=== PATIENT | female | born 1975 | race Caucasian/White ===

== ENCOUNTER → 2022-01-23 | Outpatient (CLI) | payer MEDICARE, OTHER ==
--- NOTE | 2022-01-24 06:08 | XR ---
EXAMINATION TYPE: XR ribs RT DATE OF EXAM: 01/23/2022 COMPARISON: NONE HISTORY: Right-sided rib pain after fall injury. TECHNIQUE: Frontal and oblique images of the right-sided ribs are obtained. FINDINGS: There is acute minimally displaced right-sided rib fracture the anterolateral fourth rib. R emainder ribs show no acute displaced fractures. Overlying soft tissues unremarkable. Visualized righ t lung is clear. IMPRESSION: Acute minimally displaced fracture anterolateral right fourth rib.
== END | disposition home or self-care (01) ==
LOC: RADXRMAIN 16:20
PROVIDERS: ATTEND Internal Medicine
DX: R07.81 Pleurodynia (principal)

== ENCOUNTER 2022-11-12 21:49 | Emergency (ER) | payer MEDICARE, OTHER ==
[2022-11-12] MEDS ORDERED: IPRATROPIUM-ALBUTEROL 3 ML NEB INHALATION STA ×2 (22:06→23:41)
[2022-11-12] MEDS ORDERED: ALBUTEROL HFA INHALER INHALATION STA (22:09)
[2022-11-12] MEDS ORDERED: DEXAMETHASONE SOD PHOSPHATE 10 MG/ML 1 ML VIAL IM STA (22:12)
--- NOTE | 2022-11-12 22:14 | ED ---
SOB HPI - General Chief Complaint: Shortness of Breath Stated Complaint: Difficulty Breathing Time Seen by Provider: 11/12/22 21:51 Source: patient, EMS, RN notes reviewed, old records reviewed Mode of arrival: EMS Limitations: no limitations - History of Present Illness Initial Comments: This nontoxic-appearing 47-year-old female presents to the emergency room with complaints of shortness of breath, cough and fever since Saturday. Patient states she has been out of her asthma inhaler and Advair for a couple of months. History of asthma and chronic bronchitis. MD Complaint: shortness of breath -: days(s) (3) Severity scale (1-10): 0 Known History Of: asthma Associated Symptoms: fever, cough - Related Data Home Oxygen Therapy: No Home Medications Medication Instructions Recorded Confirmed Albuterol Nebulized [Ventolin 2.5 mg PO Q6H PRN 12/22/15 12/22/15 Nebulized] levalbuterol HCL [Xopenex] 1.25 mg INHALATION DAILY PRN 12/22/15 12/22/15 Previous Rx's Medication Instructions Recorded clindamycin HCL [Cleocin] 300 mg PO Q6HR 10 Days cap 12/22/15 Albuterol Inhaler [Ventolin Hfa 1 - 2 puff INHALATION Q6HR PRN #1 11/12/22 Inhaler] each Azithromycin [Zithromax Z Pack] 1 tab PO DIRECTED #6 tab 11/12/22 methylPREDNISolone Dose Pack 4 mg PO DIRECTED #21 tab 11/12/22 [Medrol Dose Pack] Allergies Allergy/AdvReac Type Severity Reaction Status Date / Time No Known Allergies Allergy Verified 12/22/15 10:56 Review of Systems ROS Statement: Those systems with pertinent positive or pertinent negative responses have been documented in the HPI. ROS Other: All systems not noted in ROS Statement are negative. Past Medical History Past Medical History: Asthma Additional Past Medical History / Comment(s): chronic bronchitis History of Any Multi-Drug Resistant Organisms: None Reported Past Surgical History: Cholecystectomy Past Psychological History: No Psychological Hx Reported Past Alcohol Use History: None Reported Past Drug Use History: None Reported General Exam Limitations: no limitations General appearance: alert, in no apparent distress Head exam: Present: atraumatic Eye exam: Absent: scleral icterus, conjunctival injection, periorbital swelling ENT exam: Present: mucous membranes moist Neck exam: Present: full ROM. Absent: meningismus Respiratory exam: Present: wheezes. Absent: rhonchi, stridor, chest wall tenderness, accessory muscle use Cardiovascular Exam: Present: tachycardia GI/Abdominal exam: Present: soft Extremities exam: Present: normal capillary refill. Absent: pedal edema Back exam: Absent: tenderness, CVA tenderness (R), CVA tenderness (L), rash noted Neurological exam: Present: alert, oriented X3, CN II-XII intact Psychiatric exam: Present: normal affect, normal mood Skin exam: Present: warm, dry, normal color. Absent: cyanosis, diaphoretic, petechiae, pallor Course Vital Signs 11/12/22 11/12/22 11/12/22 21:55 21:58 22:00 Temperature 99.7 F H Pulse Rate 110 H 113 H 112 H Respiratory 18 24 18 Rate Blood Pressure 114/53 114/53 103/74 O2 Sat by Pulse 97 97 97 Oximetry 11/12/22 11/12/22 11/12/22 22:30 23:00 23:30 Temperature Pulse Rate 107 H 118 H 104 H Respiratory 18 20 16 Rate Blood Pressure 112/62 116/43 116/43 O2 Sat by Pulse 98 96 95 Oximetry 11/13/22 11/13/22 11/13/22 00:00 00:41 00:50 Temperature 99.6 F Pulse Rate 104 H 102 H 95 Respiratory 16 Rate Blood Pressure 122/58 O2 Sat by Pulse 96 Oximetry 11/13/22 00:55 Temperature Pulse Rate 104 H Respiratory 16 Rate Blood Pressure 112/41 O2 Sat by Pulse 98 Oximetry Medical Decision Making - Medical Decision Making Chest x-ray interpreted by me shows left lower lobe pneumonia. Radiologist interpretation left lower lobe airspace opacities compatible with pneumonia. Patient was given a shot of Decadron and a breathing treatment with significant improvement. Upon reevaluation patient resting comfortably on the cart, no respiratory distress with heart rate of 102, temp oral 99.6, oxygen saturation 98% on room air. Patient will be discharged home to follow up with Dr. Figueroa this week. Directed to return with any new or concerning symptoms. She is agreeable to this plan of care. Patient states that she has been our of her medications for over 2 months therefore her albuterol was represcribed. She was given a Z-Ace and Medrol Dosepak. Case with Dr. Ramirez Was pt. sent in by a medical professional or institution ([facility], [facility], urgent care, hospital, or snf...) When possible be specific @ -No Did you speak to anyone other than the patient for history (EMS, parent, family, police, friend...)? What history was obtained from this source @ -No Did you review nursing and triage notes (agree or disagree)? Why? @ -I reviewed and agree with nursing and triage notes Were old charts reviewed (outside hosp., previous admission, EMS record, old EKG, old radiological studies, urgent care reports/EKG's, snf records)? Report findings @ -No old charts were reviewed Differential Diagnosis (chest pain, altered mental status, abdominal pain women, abdominal pain men, vaginal bleeding, weakness, fever, dyspnea, syncope, headache, dizziness, GI bleed, back pain, seizure, CVA, palpatations, mental health, musculoskeletal)? @ -Differential Fever: Pneumonia, viral URI, sinusitis, peritonsillar Abscess, retropharyngeal Abscess, epiglottitis, this is not meant to be an all-inclusive list. EKG interpreted by me (3pts min.). @ -n/a X-rays interpreted by me (1pt min.). @ -yES as above CT interpreted by me (1pt min.). @ -None done U/S interpreted by me (1pt. min.). @ -None done What testing was considered but not performed or refused? (CT, X-rays, U/S, labs)? Why? @ -None What meds were considered but not given or refused? Why? @ -None Did you discuss the management of the patient with other professionals (professionals i.e. [facility] Llanos, [facility], lab, RT, psych nurse, social welfare administrator, supervisor shrimp pond, teacher, chief privacy officer, immigration case worker)? Give summary @ -No Was smoking cessation discussed for >3mins.? @ -No Was critical care preformed (if so, how long)? @ -No Were there social determinants of health that impacted care today? How? (Homelessness, low income, unemployed, alcoholism, drug addiction, transportation, low edu. Level, literacy, decrease access to med. care, group home, rehab)? @ -Patient ran out of her albuterol medications 2 months ago Was there de-escalation of care discussed even if they declined (Discuss DNR or withdrawal of care, Hospice)? DNR status @ -No What co-morbidities impacted this encounter? (DM, HTN, Smoking, COPD, CAD, Cancer, CVA, ARF, Chemo, Hep., AIDS, mental health diagnosis, sleep apnea, morbid obesity)? @ -Asthma, chronic bronchitis Was patient admitted / discharged? Hospital course, mention meds given and route, prescriptions, significant lab abnormalities, going to OR and other pertinent info. @ -Discharged Undiagnosed new problem with uncertain prognosis? @ -No Drug Therapy requiring intensive monitoring for toxicity (Heparin, Nitro, Insulin, Cardizem)? @ -No Were any procedures done? @ -No Diagnosis/symptom? @ -Pneumonia Acute, or Chronic, or Acute on Chronic? @ -Acute Uncomplicated (without systemic symptoms) or Complicated (systemic symptoms)? @ -default Side effects of treatment? @ -No Exacerbation, Progression, or Severe Exacerbation? @ -No Poses a threat to life or bodily function? How? (Chest pain, [place], [place], pneumonia, PE, COPD, DKA, ARF, appy, cholecystitis, CVA, Diverticulitis, Homicidal, Suicidal, threat to staff... and all critical care pts) @ -No - Lab Data Lab Results 11/12/22 Range/Units 22:36 Influenza Type A (PCR) Not Detected (Not Detectd) Influenza Type B (PCR) Not Detected (Not Detectd) RSV (PCR) Not Detected (Not Detectd) SARS-CoV-2 (PCR) Not Detected (Not Detectd) Disposition Clinical Impression: Pneumonia, Asthma Disposition: HOME SELF-CARE Condition: Good Instructions (If sedation given, give patient instructions): Asthma (ED), Bacterial Pneumonia (ED) Additional Instructions: Take antibiotics as prescribed for pneumonia. Take prednisone for asthma. Tylenol Motrin as needed for any fevers or discomfort. Follow-up with the primary care doctor this week. Prescriptions: methylPREDNISolone Dose Pack [Medrol Dose Pack] 4 mg PO DIRECTED #21 tab Albuterol Inhaler [Ventolin Hfa Inhaler] 1 - 2 puff INHALATION Q6HR PRN #1 each PRN Reason: Shortness Of Breath Or Wheezing Azithromycin [Zithromax Z Pack] 1 tab PO DIRECTED #6 tab Is patient prescribed a controlled substance at d/c from ED?: No Referrals: Dalila Figueroa MD [Primary Care Provider] - 1-2 days Time of Disposition: 23:33
--- NOTE | 2022-11-12 23:17 | XR ---
EXAMINATION TYPE: XR chest 2V DATE OF EXAM: 11/12/2022 10:31 PM COMPARISON: Chest radiographs from 01/23/2022 TECHNIQUE: XR chest 2V Frontal and lateral views of the chest. CLINICAL INDICATION:Female, 47 years old with history of cough fevers; FINDINGS: Lungs/Pleura: Left lower lobe airspace opacities There is no evidence of pleural effusion, or pneumot horax. Pulmonary vascularity: Unremarkable. Heart/mediastinum: Cardiomediastinal silhouette is unremarkable. Musculoskeletal: No acute osseous pathology. IMPRESSION: Left lower lobe lateral airspace opacities compatible with pneumonia.
[2022-11-12] MEDS ORDERED: ACETAMINOPHEN TAB 325 MG TAB PO STA (23:46)
[2022-11-12] MEDS ORDERED: IBUPROFEN 600 MG TAB PO STA (23:46)
[2022-11-13 00:08] VITALS: TEMP 99.6
[2022-11-13 00:09] VITALS: RESP 16
[2022-11-13 00:56] VITALS: BP 112/41; PULSE 104
== END 2022-11-13 00:56 | disposition home or self-care (01) ==
LOC: EC 21:49
DX: J45.909 Unspecified asthma, uncomplicated (principal); J18.9 Pneumonia, unspecified organism; Z20.822 Contact with and (suspected) exposure to COVID-19; Z79.899 Other long term (current) drug therapy
CPT/HCPCS: 94640; 87636; 71046; 99285; 96372; J1100

== ENCOUNTER 2023-02-10 14:29 | Observation (INO) | payer MEDICARE, OTHER ==
[2023-02-10] MEDS ORDERED: IPRATROPIUM-ALBUTEROL 3 ML NEB INHALATION STA (14:45)
[2023-02-10] MEDS ORDERED: DEXAMETHASONE SOD PHOSPHATE 10 MG/ML 1 ML VIAL IV STA (15:08)
--- NOTE | 2023-02-10 15:08 | ED ---
General Adult HPI - General Chief complaint: Shortness of Breath Stated complaint: JILLIAN Time Seen by Provider: 02/10/23 14:30 Source: patient, EMS Mode of arrival: EMS Limitations: no limitations - History of Present Illness Initial comments: Dictation was produced using [employer] dictation software. please excuse any grammatical, word or spelling errors. Chief Complaint: 47-year-old female with past medical history of marijuana and tobacco use presents to the emergency department for what she reports is recurrence of bronchitis History of Present Illness: Patient is a 47-year-old female past medical history of chronic bronchitis, marijuana use and tobacco abuse presents to emergency Department with shortness of breath since yesterday. She's been admitted to the hospital in the past for pneumonia. She thinks that she may have a recurrence of pneumonia. Denies any fever or abdominal or chest pain. She does report a cough sometimes productive. The ROS documented in this emergency department record has been reviewed and confirmed by me. Those systems with pertinent positive or negative responses have been documented in the HPI. All other systems are other negative and/or noncontributory. - Related Data Home Medications Medication Instructions Recorded Confirmed Albuterol Nebulized [Ventolin 2.5 mg INHALATION RT-Q6H PRN 12/21/02/10/23 Nebulized] Albuterol Inhaler [Ventolin Hfa 2 puff INHALATION RT-Q6H PRN 02/10/23 02/10/23 Inhaler] Allergies Allergy/AdvReac Type Severity Reaction Status Date / Time No Known Allergies Allergy Verified 02/10/23 17:21 Review of Systems ROS Statement: Those systems with pertinent positive or pertinent negative responses have been documented in the HPI. ROS Other: All systems not noted in ROS Statement are negative. Past Medical History Past Medical History: Asthma Additional Past Medical History / Comment(s): chronic bronchitis History of Any Multi-Drug Resistant Organisms: None Reported Past Surgical History: Cholecystectomy Past Psychological History: No Psychological Hx Reported Smoking Status: Current every day smoker Past Alcohol Use History: None Reported Past Drug Use History: Marijuana General Exam - General Exam Comments Initial Comments: PHYSICAL EXAM: General Impression: Alert and oriented x3, not in acute distress HEENT: Normocephalic atraumatic, extra-ocular movements intact, pupils equal and reactive to light bilaterally, mucous membranes moist. Cardiovascular: Heart regular rate and rhythm Chest: Able to complete full sentences, no retractions, no tachypnea, diffuse rhonchi and wheezing Abdomen: abdomen soft, non-tender, non-distended, no organomegaly Musculoskeletal: Pulses present and equal in all extremities, no peripheral edema Motor: no focal deficits noted Neurological: CN II-XII grossly intact, no focal motor or sensory deficits noted Skin: Intact with no visualized rashes Psych: Normal affect and mood Limitations: no limitations Course Vital Signs 02/10/23 02/10/23 02/10/23 14:29 14:33 14:46 Temperature 97.7 F Pulse Rate 92 88 92 Respiratory 20 Rate Blood Pressure 124/65 O2 Sat by Pulse 99 Oximetry 02/10/23 02/10/23 02/10/23 14:51 15:30 15:32 Temperature Pulse Rate 104 H 103 H Respiratory 24 20 15 Rate Blood Pressure 125/66 124/65 O2 Sat by Pulse 95 94 L Oximetry 02/10/23 16:00 Temperature Pulse Rate 92 Respiratory 26 H Rate Blood Pressure 130/68 O2 Sat by Pulse 96 Oximetry Medical Decision Making - Medical Decision Making Was pt. sent in by a medical professional or institution (, PA, [facility], urgent care, hospital, or care home...) When possible be specific @ -No Did you speak to anyone other than the patient for history (EMS, parent, family, police, friend...)? What history was obtained from this source @ -No Did you review nursing and triage notes (agree or disagree)? Why? @ -I reviewed and agree with nursing and triage notes Were old charts reviewed (outside hosp., previous admission, EMS record, old EKG, old radiological studies, urgent care reports/EKG's, care home records)? Report findings @ -No old charts were reviewed Differential Diagnosis (chest pain, altered mental status, abdominal pain women, abdominal pain men, vaginal bleeding, musculoskeletal, weakness, fever, dyspnea, syncope, headache, dizziness, GI bleed, back pain, seizure, CVA, palpatations, mental health)? @ -Differential Dyspnea: Coronary syndrome, arrhythmia, tamponade, asthma, COPD, pulmonary embolism, pneumonia, pneumothorax, pulmonary effusion, anaphylaxis, diabetic ketoacidosis, flailed chest, pulmonary contusion, diaphragmatic rupture, anemia, neuromuscular, this is not meant to be an all-inclusive list. EKG interpreted by me (3pts min.). @ -None done X-rays interpreted by me (1pt min.). @ -No acute processes on chest x-ray CT interpreted by me (1pt min.). @ -None done U/S interpreted by me (1pt. min.). @ -None done What testing was considered but not performed or refused? (CT, X-rays, U/S, labs)? Why? @ -None What meds were considered but not given or refused? Why? @ -None Did you discuss the management of the patient with other professionals (professionals i.e. , PA, [facility] CONSULT[facility], lab, RT, psych nurse, social welfare research worker, flatbed stitcher, teacher, transportation security officer, caseworker)? Give summary @ -Case discussed with Elmira from the [facility] Was smoking cessation discussed for >3mins.? @ -No Was critical care preformed (if so, how long)? @ -No Were there social determinants of health that impacted care today? How? (Homelessness, low income, unemployed, alcoholism, drug addiction, tra nsportation, low edu. Level, literacy, decrease access to med. care, fdc, rehab)? @ -No Was there de-escalation of care discussed even if they declined (Discuss DNR or withdrawal of care, Hospice)? DNR status @ -No What co-morbidities impacted this encounter? (DM, HTN, Smoking, COPD, CAD, Cancer, CVA, ARF, Chemo, Hep., AIDS, mental health diagnosis, sleep apnea, morbid obesity)? @ -None Was patient admitted / discharged? Hospital course, mention meds given and route, prescriptions, significant lab abnormalities, going to OR and other pertinent info. @ -47-year-old female presents emergency Department with cough shortness of breath. Vital signs upon arrival mild tachypnea. Rest of labs within acceptable limits. He appears dyspneic on physical examination. Significantly wheezy. Laboratory evaluation obtained. CBC, coag panel metabolic panel within acceptable limits. Chest x-ray is nonacute. Patient be admitted for acute bronchospasm and respiratory distress. Patient admitted to observation Undiagnosed new problem with uncertain prognosis? @ -No Drug Therapy requiring intensive monitoring for toxicity (Heparin, Nitro, Insulin, Cardizem)? @ -No Were any procedures done? @ -No Diagnosis/symptom? Acute, or Chronic, or Acute on Chronic? Uncomplicated (without systemic symptoms) or Complicated (systemic symptoms)? @ -1. Respiratory failure Side effects of treatment? @ -No Exacerbation, Progression, or Severe Exacerbation? @ -No Poses a threat to life or bodily function? How? (Chest pain, [place], [place], pneumonia, PE, COPD, DKA, ARF, appy, cholecystitis, CVA, Diverticulitis, Homicidal, Suicidal, threat to staff... and all critical care pts) @ -yes - Lab Data Result diagrams: 02/10/23 15:04 02/10/23 15:04 Lab Results 02/10/23 02/10/23 02/10/23 Range/Units 15:04 15:04 15:04 WBC 7.4 (3.8-10.6) k/uL RBC 5.03 (3.80-5.40) m/uL Hgb 13.8 (11.4-16.0) gm/dL Hct 42.8 (34.0-46.0) % MCV 85.2 (80.0-100.0) fL MCH 27.4 (25.0-35.0) pg MCHC 32.1 (31.0-37.0) g/dL RDW 15.5 (11.5-15.5) % Plt Count 199 (150-450) k/uL MPV 9.8 Neutrophils % 82 % Lymphocytes % 12 % Monocytes % 3 % Eosinophils % 2 % Basophils % 0 % Neutrophils # 6.1 (1.3-7.7) k/uL Lymphocytes # 0.9 L (1.0-4.8) k/uL Monocytes # 0.2 (0-1.0) k/uL Eosinophils # 0.2 (0-0.7) k/uL Basophils # 0.0 (0-0.2) k/uL Hypochromasia Slight PT 9.9 (9.0-12.0) sec INR 0.9 (<1.2) APTT 20.9 L (22.0-30.0) sec Sodium 139 (137-145) mmol/L Potassium 3.4 L (3.5-5.1) mmol/L Chloride 101 (98-107) mmol/L Carbon Dioxide 26 (22-30) mmol/L Anion Gap 12 mmol/L BUN 21 H (7-17) mg/dL Creatinine 0.44 L (0.52-1.04) mg/dL Est GFR (CKD-EPI)AfAm >90 (>60 ml/min/1.73 sqM) Est GFR (CKD-EPI)NonAf >90 (>60 ml/min/1.73 sqM) Glucose 110 H (74-99) mg/dL Calcium 9.6 (8.4-10.2) mg/dL Troponin I (0.000-0.034) ng/mL NT-Pro-B Natriuret Pep pg/mL 02/10/23 02/10/23 Range/Units 15:04 15:04 WBC (3.8-10.6) k/uL RBC (3.80-5.40) m/uL Hgb (11.4-16.0) gm/dL Hct (34.0-46.0) % MCV (80.0-100.0) fL MCH (25.0-35.0) pg MCHC (31.0-37.0) g/dL RDW (11.5-15.5) % Plt Count (150-450) k/uL MPV Neutrophils % % Lymphocytes % % Monocytes % % Eosinophils % % Basophils % % Neutrophils # (1.3-7.7) k/uL Lymphocytes # (1.0-4.8) k/uL Monocytes # (0-1.0) k/uL Eosinophils # (0-0.7) k/uL Basophils # (0-0.2) k/uL Hypochromasia PT (9.0-12.0) sec INR (<1.2) APTT (22.0-30.0) sec Sodium (137-145) mmol/L Potassium (3.5-5.1) mmol/L Chloride (98-107) mmol/L Carbon Dioxide (22-30) mmol/L Anion Gap mmol/L BUN (7-17) mg/dL Creatinine (0.52-1.04) mg/dL Est GFR (CKD-EPI)AfAm (>60 ml/min/1.73 sqM) Est GFR (CKD-EPI)NonAf (>60 ml/min/1.73 sqM) Glucose (74-99) mg/dL Calcium (8.4-10.2) mg/dL Troponin I <0.012 (0.000-0.034) ng/mL NT-Pro-B Natriuret Pep 76 pg/mL Disposition Clinical Impression: Respiratory failure Disposition: ADMITTED IP TO THIS HOSP Condition: Fair Referrals: Dalila Figueroa MD [Primary Care Provider] - 1-2 days Decision Time: 17:00
[2023-02-10 15:31] LABS: Basophils % (A) 0 %; Eosinophils # (A) 0.2 k/uL (0-0.7); Eosinophils % (A) 2 %; HCT 42.8 % (34.0-46.0); HGB 13.8 gm/dL (11.4-16.0); Hypochromasia Slight; Lymphocytes # (A) 0.9 k/uL (1.0-4.8); Lymphocytes % (A) 12 %; MCH 27.4 pg (25.0-35.0); MCHC 32.1 g/dL (31.0-37.0); MCV 85.2 fL (80.0-100.0); Mean Platelet Volume 9.8; Monocytes # (A) 0.2 k/uL (0-1.0); Monocytes % (A) 3 %; Neutrophils # (A) 6.1 k/uL (1.3-7.7); Neutrophils % (A) 82 %; Platelet Count 199 k/uL (150-450); RBC 5.03 m/uL (3.80-5.40); RDW 15.5 % (11.5-15.5); WBC 7.4 k/uL (3.8-10.6)
--- NOTE | 2023-02-10 15:44 | XR ---
EXAMINATION TYPE: XR chest 2V DATE OF EXAM: 02/10/2023 COMPARISON: 11/12/2022 HISTORY: Wheezing TECHNIQUE: Frontal and lateral views of the chest are obtained. FINDINGS: There is no focal air space opacity, pleural effusion, or pneumothorax seen. The cardiac silhouette size is within normal limits. The osseous structures are intact. IMPRESSION: No acute cardiopulmonary process.
[2023-02-10 15:50] LABS: INR 0.9 (<1.2); Prothrombin Time 9.9 sec (9.0-12.0)
[2023-02-10 15:58] LABS: African American GFR (CKD) >90 (>60 ml/min/1.73 sqM); Anion Gap 12 mmol/L; Blood Urea Nitrogen 21 mg/dL (7-17); Calcium 9.6 mg/dL (8.4-10.2); Carbon Dioxide 26 mmol/L (22-30); Chloride 101 mmol/L (98-107); Glucose 110 mg/dL (74-99); Non-African American GFR(CKD) >90 (>60 ml/min/1.73 sqM); Potassium 3.4 mmol/L (3.5-5.1); Sodium 139 mmol/L (137-145)
[2023-02-10 16:04] LABS: Partial Thromboplastin Time 20.9 sec (22.0-30.0)
[2023-02-10] MEDS ORDERED: NALOXONE 0.4 MG/ML 1 ML VIAL IVP PRN (17:35)
[2023-02-10] MEDS: IPRATROPIUM-ALBUTEROL 3 ML NEB INHALATION SCH (19:55)
[2023-02-11] MEDS: IPRATROPIUM-ALBUTEROL 3 ML NEB INHALATION SCH ×5 (01:43→19:16)
--- NOTE | 2023-02-11 11:12 | P.CNPUL ---
History of Present Illness Consult date: 02/11/23 Requesting physician: Kerwin Pinto Reason for consult: dyspnea, cough, asthma, COPD, hypoxemia Chief complaint: Shortness of breath, asthma exacerbation. History of present illness: Pulmonary consult dated 02/11/2023. 47-year-old female with a diagnosis of asthma, and possible COPD, presents to the emergency department on February 10, for increasing shortness of breath. She is wheezing, and coughing. She is producing a small amount of phlegm. The patient does have a history of tobacco use, and does smoke marijuana, when she can afford it. The patient has been admitted in the past for pneumonia. The patient's primary care physician is Dr. Figueroa. She apparently tells us that she has a diagnosis of asthma. She typically does not take anything for her asthma. She has used inhalers in the past. As mentioned, she does smoke, and does use marijuana as well as. Her chest x-ray was consistent with COPD exacerbation. She denies other past medical history. White count is 7.4, hemoglobin 13.8, hematocrit 42.8, with a normal platelet count. Sodium 139, potassium 3.4, chlorides 101, CO2 26, normal anion gap, BUN 21, and creatinine 0.44. N- terminal proBNP was normal. Troponin was normal. Chest x-ray showed evidence of hyperinflation. Review of Systems REVIEW OF SYSTEMS: CONSTITUTIONAL: [Negative.] NEUROLOGIC: [ Negative.] HEENT: [ Negative.] CARDIAC: [Negative.] PULMONARY: Shortness of breath, wheezing, cough, with phlegm production. GI: [Negative.] : [Negative.] RHEUMATOLOGIC: [ Negative.] IMMUNOLOGIC: [ Negative.] ENDOCRINE: [Negative. ] DERMATOLOGIC: [Negative.] Past Medical History Past Medical History: Asthma Additional Past Medical History / Comment(s): chronic bronchitis History of Any Multi-Drug Resistant Organisms: None Reported Past Surgical History: Cholecystectomy Past Psychological History: No Psychological Hx Reported Smoking Status: Current every day smoker Past Alcohol Use History: None Reported Past Drug Use History: Marijuana Medications and Allergies Home Medications Medication Instructions Recorded Confirmed Type Albuterol Nebulized [Ventolin 2.5 mg INHALATION RT-Q6H PRN 12/22/15 02/10/23 History Nebulized] Albuterol Inhaler [Ventolin Hfa 2 puff INHALATION RT-Q6H PRN 02/10/23 02/10/23 History Inhaler] Allergies Allergy/AdvReac Type Severity Reaction Status Date / Time No Known Allergies Allergy Verified 02/10/23 17:21 Physical Exam Osteopathic Statement: *. No significant issues noted on an osteopathic structural exam other than those noted in the History and Physical/Consult. Vitals: Vital Signs Temp Pulse Pulse Resp BP BP Pulse Ox 02/11/23 08:27 84 02/11/23 08:11 82 95 02/11/23 07:55 97.2 F L 83 17 114/71 91 L 02/11/23 07:06 96 94/79 02/11/23 06:00 98.1 F 78 94/79 92 L 02/11/23 01:56 96 02/11/23 01:44 87 02/11/23 00:15 20 02/11/23 00:14 97.8 F 92 20 127/73 94 L 02/10/23 18:30 97 02/10/23 18:04 98.3 F 90 20 122/67 92 L 02/10/23 16:00 92 26 H 130/68 96 02/10/23 15:32 103 H 15 124/65 94 L 02/10/23 15:30 104 H 20 125/66 95 02/10/23 14:51 24 02/10/23 14:46 92 02/10/23 14:33 88 02/10/23 14:29 97.7 F 92 20 124/65 99 Intake and Output 02/10/23 02/11/23 02/11/23 22:59 06:59 14:59 Other: # Voids 1 No acute distress, oriented 3. Currently on room air. HEENT examination is grossly unremarkable. Neck supple. Full range of motion. No adenopathy thyromegaly or neck vein distention. Cardiovascular examination reveals regular rhythm rate. S1-S2 normal. No S3 or S4. No discernible murmur noted. Heart rate 84 bpm. Lungs reveal bilateral expiratory wheezes and rhonchi. She has a very harsh wet congested sounding cough. No crackles. Saturations are 91% on room air, and 95% on 2 L. Abdomen soft bowel sounds are heard. No masses or tenderness. Extremities are intact. No cyanosis clubbing or edema. Skin is without rash or lesion. Neurologic examination is brief but nonfocal. Results - Laboratory Findings CBC and BMP: 02/10/23 15:04 02/10/23 15:04 PT/INR, D-dimer PT 9.9 sec (9.0-12.0) 02/10/23 15:04 INR 0.9 (<1.2) 02/10/23 15:04 Abnormal lab findings: Abnormal Labs 02/10/23 02/10/23 02/10/23 15:04 15:04 15:04 Lymphocytes # 0.9 L APTT 20.9 L Potassium 3.4 L BUN 21 H Creatinine 0.44 L Glucose 110 H - Diagnostic Findings Chest x-ray: image reviewed Assessment and Plan Assessment: Acute exacerbation of COPD/asthma. Acute hypoxemic respiratory failure secondary to COPD/asthma. Ongoing tobacco use and marijuana use. Prior history of pneumonia. Plan: Plan dated 02/11/2023. The patient is given Pulmicort solution, 1 mg, with formoterol, 20 g, twice a day. In addition, we give her Solu-Medrol 60 mg every 6 hours, doxycycline 100 mg twice a day, and updrafts with both albuterol sulfate and ipratropium bromide. She is counseled about the importance of smoking cessation, and not using marijuana. The patient's chest x-ray did not show anything acute. We will continue to follow make recommendations along the way. Labs, x-rays, and medications are reviewed. Prognosis is guarded. Time with Patient: Greater than 30
[2023-02-11] MEDS ORDERED: Potassium Replacement Protocol 1 EACH MISC MISCELLANE PRN (11:27)
[2023-02-11] MEDS: methylPREDNISolone SOD SUCCI 125 MG/2 ML VIAL IV SCH ×3 (11:29→23:32)
[2023-02-11] MEDS: DOXYCYCLINE 100 MG CAP PO SCH ×2 (11:29→20:22)
[2023-02-11] MEDS: POTASSIUM CHLORIDE ER 20 MEQ TAB.ER PO SCH ×2 (11:46→13:38)
--- NOTE | 2023-02-11 18:27 | HP ---
HISTORY AND PHYSICAL CHIEF COMPLAINT: Shortness of breath. HISTORY OF PRESENT ILLNESS: This is a 47-year-old woman with asthma and COPD, who was complaining of increasing shortness of breath over the past . The patient apparently had a breathing treatment at outpatient, and chest x-ray showed no evidence of pneumonia. The patient was admitted for further evaluation and treatment. There is no history of any fever, rigors, or chills. The patient continues to smoke previously. PAST MEDICAL HISTORY: Asthma and bronchitis. Rest of the history and rest of the chart are also reviewed. HOME MEDICATIONS: Albuterol. Doses and rest of the medications are noted. ALLERGIES: None. FAMILY HISTORY: No history of heart disease or strokes in the family. SOCIAL HISTORY: Smoking, THC. REVIEW OF SYSTEMS: Fourteen-point review is negative except as mentioned earlier. PHYSICAL EXAMINATION: VITAL SIGNS: Pulse 83, blood pressure 114/70, respirations 17. HEENT: Conjunctivae are normal. NECK: No jugular venous distention. CARDIOVASCULAR: S1 and S2 muffled. RESPIRATORY: Bilateral scattered rhonchi and crackles. Expiratory wheezing. ABDOMEN: Soft and nontender. LEGS: No edema. NERVOUS SYSTEM: Nonfocal. LABORATORY DATA: Sodium 139, potassium 3.4. The rest of the labs are noted. ASSESSMENT: 1. Chronic obstructive pulmonary disease/bronchial asthma acute exacerbation with acute purulent tracheobronchitis with failure of outpatient treatment. 2. Continued nicotine dependence. 3. History of chronic bronchitis. 4. History of cholecystectomy. 5. History of THC. RECOMMENDATIONS AND DISCUSSION: Recommend to continue current medications. Continue symptomatic treatment. IV steroids. I would recommend serum procalcitonin and Pulmonary consultation. Intensive bronchodilator treatment. Prognosis is guarded because of multiple complex medical issues. Further recommendations to follow. See orders for the details. MMODL / IJN: [id number] / MTDD
[2023-02-11] MEDS: FORMOTEROL FUMARATE 20 MCG/2 ML NEBU INHALATION SCH (19:15)
[2023-02-11] MEDS: BUDESONIDE 1 MG/2 ML NEBU INHALATION SCH (19:15)
[2023-02-11] MEDS ORDERED: SYMBICORT 160-4.5 MCG INHALER INHALATION SCH (20:00)
[2023-02-12] MEDS: methylPREDNISolone SOD SUCCI 125 MG/2 ML VIAL IV SCH ×3 (05:32→18:43)
[2023-02-12] MEDS: BUDESONIDE 1 MG/2 ML NEBU INHALATION SCH ×2 (07:43→19:35)
[2023-02-12] MEDS: IPRATROPIUM-ALBUTEROL 3 ML NEB INHALATION SCH ×4 (07:43→19:35)
[2023-02-12] MEDS: FORMOTEROL FUMARATE 20 MCG/2 ML NEBU INHALATION SCH ×2 (07:43→19:35)
[2023-02-12] MEDS: DOXYCYCLINE 100 MG CAP PO SCH (08:30)
[2023-02-12] MEDS ORDERED: predniSONE 20 MG TAB PO SCH (09:00)
--- NOTE | 2023-02-12 11:26 | P.PN ---
Subjective Progress Note Date: 02/12/23 47-year-old female with a diagnosis of asthma, and possible COPD, presents to the emergency department on February 10, for increasing shortness of breath. She is wheezing, and coughing. She is producing a small amount of phlegm. The patient does have a history of tobacco use, and does smoke marijuana, when she can afford it. The patient has been admitted in the past for pneumonia. The patient's primary care physician is Dr. Figueroa. She apparently tells us that she has a diagnosis of asthma. She typically does not take anything for her asthma. She has used inhalers in the past. As mentioned, she does smoke, and does use marijuana as well as. Her chest x-ray was consistent with COPD exacerbation. She denies other past medical history. White count is 7.4, hemoglobin 13.8, hematocrit 42.8, with a normal platelet count. Sodium 139, potassium 3.4, chlorides 101, CO2 26, normal anion gap, BUN 21, and creatinine 0.44. N- terminal proBNP was normal. Troponin was normal. Chest x-ray showed evidence of hyperinflation. The patient is seen today 02/12/2023 in follow-up on the regular medical floor. She is resting comfortable in bed. Awake and alert in no acute distress. Maintaining O2 saturations in the 90s on room air. No IV fluids. She is still somewhat spastic and wheezing. Her pro-calcitonin was 0.03. Doxycycline will be discontinued. She is continued on DuoNeb inhalations, and Perforomist inhalations, IV Solu-Medrol. Objective - Vital Signs Vital signs: Vital Signs Temp 97.8 F 02/12/23 07:35 Pulse 79 02/12/23 11:17 Resp 16 02/12/23 07:35 BP 125/75 02/12/23 07:35 Pulse Ox 95 02/12/23 07:43 FiO2 Intake & Output 02/11/23 02/12/23 02/12/23 18:59 06:59 18:59 Intake Total 236 Balance 236 Weight 63.503 kg Intake: Oral 236 Other: Voiding Method Toilet # Voids 1 2 - Exam GENERAL EXAM: Alert, 47-year-old female, on room air, comfortable in no apparent distress. HEAD: Normocephalic. EYES: Normal reaction of pupils, equal size. NOSE: Clear with pink turbinates. THROAT: No erythema or exudates. NECK: No masses, no JVD. CHEST: No chest wall deformity. LUNGS: Equal air entry with bilateral wheeze, diminished. CVS: S1 and S2 normal with no audible murmur, regular rhythm. ABDOMEN: No hepatosplenomegaly, normal bowel sounds, no guarding or rigidity. SPINE: No scoliosis or deformity SKIN: No rashes CENTRAL NERVOUS SYSTEM: No focal deficits, tone is normal in all 4 extremities. EXTREMITIES: There is no peripheral edema. No clubbing, no cyanosis. Peripheral pulses are intact. - Labs CBC & Chem 7: 02/10/23 15:04 02/10/23 15:04 Assessment and Plan Assessment: Acute exacerbation of COPD/asthma. Acute hypoxemic respiratory failure secondary to COPD/asthma. Ongoing tobacco use and marijuana use. Prior history of pneumonia. Plan: The patient was seen and evaluated Stable and on room air Not quite back to her baseline Continue the current treatment plan Probable discharge in the a.m. We will continue to follow I have personally seen and examined the patient, performed the documentation and the assessment and plan as written. Number of minutes spent on the visit: 10.
[2023-02-12 12:23] LABS: Basophils % (A) 0 %; Eosinophils % (A) 0 %; HCT 39.9 % (34.0-46.0); HGB 12.8 gm/dL (11.4-16.0); Lymphocytes # (A) 0.5 k/uL (1.0-4.8); Lymphocytes % (A) 6 %; MCH 27.5 pg (25.0-35.0); MCHC 32.2 g/dL (31.0-37.0); MCV 85.5 fL (80.0-100.0); Mean Platelet Volume 8.8; Monocytes # (A) 0.3 k/uL (0-1.0); Monocytes % (A) 3 %; Neutrophils # (A) 7.4 k/uL (1.3-7.7); Neutrophils % (A) 91 %; Platelet Count 228 k/uL (150-450); RBC 4.66 m/uL (3.80-5.40); RDW 15.9 % (11.5-15.5); WBC 8.2 k/uL (3.8-10.6)
[2023-02-12 12:35] LABS: African American GFR (CKD) >90 (>60 ml/min/1.73 sqM); Anion Gap 13 mmol/L; Blood Urea Nitrogen 20 mg/dL (7-17); Calcium 9.7 mg/dL (8.4-10.2); Carbon Dioxide 23 mmol/L (22-30); Chloride 100 mmol/L (98-107); Glucose 276 mg/dL (74-99); Magnesium 2.1 mg/dL (1.6-2.3); Non-African American GFR(CKD) >90 (>60 ml/min/1.73 sqM); Sodium 136 mmol/L (137-145)
--- NOTE | 2023-02-12 14:50 | P.PN ---
Subjective Progress Note Date: 02/12/23 This is a 47-year-old female who was recently admitted with shortness of breath and COPD exacerbation. Pulmonary following maintained on IV steroids along with breathing treatments and continues to report difficulty in breathing and shortness of breath. Patient is not requiring oxygen. Pro-calcitonin was negative and doxycycline was discontinued. Patient with social barriers and difficulty reporting homelessness will monitor overnight on IV steroids and follow up with case management/social work in the a.m. on discharge planning. Patient is currently afebrile with no reports of chest pain or palpitations. Patient denies nausea or vomiting and tolerating diet. Review of systems: Constitutional: No reports of fatigue, fever, or chills Cardiovascular: No reports of chest pain or palpitations Respiratory: reports of shortness of breath and continued cough GI: No reports of nausea, no reports of vomiting, no diarrhea : No reports of dysuria or retention Neurovascular: No reports of generalized weakness All medications have been reviewed PHYSICAL EXAMINATION: GENERAL: The patient is alert and oriented x4, Well developed, well nourished. HEENT: Pupils are round and equally reacting to light. EOMI. no scleral icterus. No conjunctival pallor. Normocephalic, atraumatic. No pharyngeal erythema. No thyromegaly. CARDIOVASCULAR: S1 and S2 muffled PULMONARY: diminished breath sounds bilaterally with bronchospasms and faint expiratory wheezing with coarse rhonchi noted . ABDOMEN: soft. Nontender on exam. non-distended, normoactive bowel sounds. No palpable organomegaly. MUSCULOSKELETAL: No joint swelling or deformity. EXTREMITIES: No cyanosis, clubbing, or pedal edema. NEUROLOGICAL: Gross neurological examination did not reveal any focal deficits. SKIN: No rashes. Assessment: Chronic obstructive pulmonary disease with bronchial asthma, acute exacerbation with acute purulent tracheobronchitis with failure of outpatient treatment Continued ongoing nicotine dependence History of chronic bronchitis History of cholecystectomy History of THC GI prophylaxis DVT prophylaxis Full code Plan: Recommend to continue with current medications and management with pulmonary following. Patient continues to be bronchospastic with wheezing and maintained on IV steroids along with DuoNeb treatments Patient is not requiring oxygen although continues to report shortness of breath with exertion Pro-calcitonin was negative and doxycycline was stopped per pulmonary Patient reports she is homeless and has nowhere to go and will place a consult to social work for resources Patient will discharge in 24 hours The impression and plan of care has been dictated by Elmira Landry, nurse practitioner as directed. Dr. Blair HIGGINBOTHAM I have performed a history and examination and MDM of this patient, discussed the same with the dictator, and agree with the dictator's assessment and plan as written ,documented as a scribe. Based on total visit time, I have performed more than 50% of the visit. Any additional findings or plans will be noted. Objective - Vital Signs Vital signs: Vital Signs Temp 97.8 F 02/12/23 07:35 Pulse 79 02/12/23 11:17 Resp 16 02/12/23 07:35 BP 125/75 02/12/23 07:35 Pulse Ox 95 02/12/23 07:43 FiO2 Intake & Output 02/11/23 02/12/23 02/12/23 18:59 06:59 18:59 Intake Total 236 Balance 236 Weight 63.503 kg Intake: Oral 236 Other: Voiding Method Toilet # Voids 1 2 2 - Labs CBC & Chem 7: 02/12/23 11:55 02/12/23 11:55 Labs: Abnormal Lab Results - Last 24 Hours (Table) 02/12/23 02/12/23 Range/Units 11:55 11:55 RDW 15.9 H (11.5-15.5) % Lymphocytes # 0.5 L (1.0-4.8) k/uL Sodium 136 L (137-145) mmol/L BUN 20 H (7-17) mg/dL Creatinine 0.44 L (0.52-1.04) mg/dL Glucose 276 H (74-99) mg/dL
[2023-02-13] MEDS: methylPREDNISolone SOD SUCCI 125 MG/2 ML VIAL IV SCH ×2 (00:26→05:37)
[2023-02-13] MEDS ORDERED: SYMBICORT 160-4.5 MCG INHALER INHALATION SCH (08:00)
[2023-02-13] MEDS: IPRATROPIUM-ALBUTEROL 3 ML NEB INHALATION SCH ×3 (08:20→15:39)
[2023-02-13] MEDS ORDERED: predniSONE 20 MG TAB PO SCH (09:00)
--- NOTE | 2023-02-13 11:28 | P.PN ---
Subjective Progress Note Date: 02/13/23 47-year-old female with a diagnosis of asthma, and possible COPD, presents to the emergency department on February 10, for increasing shortness of breath. She is wheezing, and coughing. She is producing a small amount of phlegm. The patient does have a history of tobacco use, and does smoke marijuana, when she can afford it. The patient has been admitted in the past for pneumonia. The patient's primary care physician is Dr. Figueroa. She apparently tells us that she has a diagnosis of asthma. She typically does not take anything for her asthma. She has used inhalers in the past. As mentioned, she does smoke, and does use marijuana as well as. Her chest x-ray was consistent with COPD exacerbation. She denies other past medical history. White count is 7.4, hemoglobin 13.8, hematocrit 42.8, with a normal platelet count. Sodium 139, potassium 3.4, chlorides 101, CO2 26, normal anion gap, BUN 21, and creatinine 0.44. N- terminal proBNP was normal. Troponin was normal. Chest x-ray showed evidence of hyperinflation. The patient is seen today 02/12/2023 in follow-up on the regular medical floor. She is resting comfortable in bed. Awake and alert in no acute distress. Maintaining O2 saturations in the 90s on room air. No IV fluids. She is still somewhat spastic and wheezing. Her pro-calcitonin was 0.03. Doxycycline will be discontinued. She is continued on DuoNeb inhalations, and Perforomist inhalations, IV Solu-Medrol. The patient is seen today 02/13/2023 in follow-up on the regular medical floor. She is sitting up in bed. Awake and alert in no acute distress. Maintaining O2 saturations in the 90s on room air. She is improved and back to her baseline. Continued on DuoNeb inhalations, Pulmicort and Perforomist inhalations, IV Solu- Medrol. Objective - Vital Signs Vital signs: Vital Signs Temp 98.1 F 02/13/23 07:00 Pulse 80 02/13/23 08:31 Resp 16 02/13/23 08:00 BP 131/81 02/13/23 07:00 Pulse Ox 97 02/13/23 07:00 FiO2 Intake & Output 02/12/23 02/13/23 02/13/23 18:59 06:59 18:59 Intake Total 591 591 Balance 591 591 Intake: Oral 591 591 Other: Voiding Method Toilet Toilet # Voids 2 2 2 - Exam GENERAL EXAM: Alert, oriented 47-year-old female, on room air, comfortable in no apparent distress. HEAD: Normocephalic. EYES: Normal reaction of pupils, equal size. NOSE: Clear with pink turbinates. THROAT: No erythema or exudates. NECK: No masses, no JVD. CHEST: No chest wall deformity. LUNGS: Equal air entry with few scattered rhonchi, no wheeze or dullness. CVS: S1 and S2 normal with no audible murmur, regular rhythm. ABDOMEN: No hepatosplenomegaly, normal bowel sounds, no guarding or rigidity. SPINE: No scoliosis or deformity SKIN: No rashes CENTRAL NERVOUS SYSTEM: No focal deficits, tone is normal in all 4 extremities. EXTREMITIES: There is no peripheral edema. No clubbing, no cyanosis. Peripheral pulses are intact. - Labs CBC & Chem 7: 02/12/23 11:55 02/12/23 11:55 Labs: Abnormal Lab Results - Last 24 Hours (Table) 02/12/23 02/12/23 Range/Units 11:55 11:55 RDW 15.9 H (11.5-15.5) % Lymphocytes # 0.5 L (1.0-4.8) k/uL Sodium 136 L (137-145) mmol/L BUN 20 H (7-17) mg/dL Creatinine 0.44 L (0.52-1.04) mg/dL Glucose 276 H (74-99) mg/dL Assessment and Plan Assessment: Acute exacerbation of COPD/asthma Acute hypoxemic respiratory failure secondary to COPD/asthma recovered and on room air Ongoing tobacco use and marijuana use Prior history of pneumonia Plan: The patient was seen and evaluated Currently stable and on room air Cleared for discharge from the pulmonary standpoint Educated regarding the importance of complete smoking cessation including marijuana and tobacco To be discharged on a Symbicort inhaler, albuterol HFA, prednisone taper I have personally seen and examined the patient, performed the documentation and the assessment and plan as written. Number of minutes spent on the visit: 10.
[2023-02-13 15:33] VITALS: BP 101/63; PULSE 72; RESP 18; TEMP 98
--- NOTE | 2023-02-18 06:57 | P.DS ---
Providers Date of admission: 02/10/23 17:36 Expected date of discharge: 02/13/23 Attending physician: Kerwin Pinto Consults: 02/11/23 10:07 Consult Physician Urgent Consulting Provider: Joseluis Godinez Reason/Comments: copd [facility] Do you want consulting provider notified?: Yes Primary care physician: Carolina Conner [facility] Course: Final diagnosis Chronic obstructive pulmonary disease with bronchial asthma, acute exacerbation with acute purulent tracheobronchitis with failure of outpatient treatment Continued ongoing nicotine dependence History of chronic bronchitis History of cholecystectomy History of THC Homelessness GI prophylaxis DVT prophylaxis Full code Discharge disposition Patient is being discharged in a stable condition with guarded prognosis to [facility]. Patient will follow-up with Dr. Sexton in the outpatient setting upon discharge. Patient is to continue with steroid taper and outpatient follow-up with pulmonary as scheduled. Total time taken is greater than 35 minutes. Hospital course This is a 47-year-old female who was recently admitted with increased cough, congestion, shortness of breath, been COPD exacerbation with concerns of acute purulent tracheobronchitis and failed outpatient therapy. Patient was seen and evaluated by pulmonary maintained on IV steroids and initially given empiric antibiotics which was discontinued and patient was started on prednisone taper. Patient has been cleared by consultation for discharge today. Please refer to pulmonary no for further HPI. Encouraged complete tobacco and THC cessation along with compliance with medications and outpatient follow-up. Currently no reports of chest pain, shortness of breath, or palpitations. Patient is afebrile. No reports of nausea or vomiting and patient is tolerating diet. Patient will be discharged home today. Guarded prognosis and high risk for readmissions given patient's continued noncompliance, social barriers, continued nicotine and THC use. Physical exam: Gen: This is a 39-year-old female who is awake, alert and oriented 3, well- developed, well-nourished HEENT: Head is atraumatic, normocephalic. Pupils equal, round. Sclerae is anicteric. NECK: Supple. No JVD. No lymphadenopathy. No thyromegaly. LUNGS: Diminished breath sounds bilaterally with some scattered rhonchi and faint expiratory wheezing noted. No intercostal retractions. HEART: Regular rate and rhythm. No murmur. ABDOMEN: Soft. Bowel sounds are present. No masses. No tenderness. EXTREMITIES: No pedal edema. No calf tenderness. NEUROLOGICAL: Patient is awake, alert and oriented x3. Cranial nerves 2 through 12 are grossly intact. Please refer to medication reconciliation sheet for a list of medications. The impression and plan of care has been dictated by Elmira Landry, Nurse Practitioner as directed. Dr. Blair MD I have performed a history and examination and MDM of this patient, discussed the same with the dictator, and agree with the dictator's assessment and plan as written ,documented as a scribe. Based on total visit time, I have performed more than 50% of the visit. Patient Condition at Discharge: Fair Plan - Discharge Summary Discharge Rx Participant: No New Discharge Prescriptions: New Ipratropium-Albuterol Nebulize [Duoneb 0.5 mg-3 mg/3 ml Soln] 3 ml INHALATION RT-QID 30 Days #100 each predniSONE 10 mg PO DIRECTED #30 tab Budesonide/Formoterol Fumarate [Symbicort 160-4.5 Mcg Inhaler] 1 puff INHALATION BID 30 Days #10.2 gm Continue Albuterol Nebulized [Ventolin Nebulized] 2.5 mg INHALATION RT-Q6H PRN PRN Reason: Shortness Of Breath Changed Albuterol Inhaler [Ventolin Hfa Inhaler] 2 puff INHALATION RT-Q6H 30 Days #1 each Discharge Medication List Albuterol Nebulized [Ventolin Nebulized] 2.5 mg INHALATION RT-Q6H PRN 12/22/15 [History] Albuterol Inhaler [Ventolin Hfa Inhaler] 2 puff INHALATION RT-Q6H 30 Days #1 each 02/12/23 [Rx] Budesonide/Formoterol Fumarate [Symbicort 160-4.5 Mcg Inhaler] 1 puff INHALATION BID 30 Days #10.2 gm 02/12/23 [Rx] Ipratropium-Albuterol Nebulize [Duoneb 0.5 mg-3 mg/3 ml Soln] 3 ml INHALATION RT-QID 30 Days #100 each 02/12/23 [Rx] predniSONE 10 mg PO DIRECTED #30 tab 02/12/23 [Rx] Follow up Appointment(s)/Referral(s): Dalila Figueroa MD [Primary Care Provider] - 1-2 days Joseluis Godinez DO [Doctor of Osteopathic Medicine] - 1 Week Patient Instructions/Handouts: COPD (Chronic Obstructive Pulmonary Disease) (GEN) Activity/Diet/Wound Care/Special Instructions: Activity Limited until follow-up Follow-up with primary care provider on discharge Follow-up with pulmonary in 1-2 weeks Continue taking medications as prescribed Avoid tobacco use and exposure Avoid any THC use and exposure Discharge/Stand Alone Forms: [facility], Who Do I Call?, Community Resources, Outpatient Counseling Discharge Disposition: HOME SELF-CARE
== END 2023-02-13 15:39 | disposition home or self-care (01) ==
LOC: EC 14:29 → 6NMEDSUR 17:36
PROVIDERS: ADMIT Hospitalist; ATTEND Hospitalist
DX: J44.1 Chronic obstructive pulmonary disease with (acute) exacerbation (principal); J96.01 Acute respiratory failure with hypoxia; F17.200 Nicotine dependence, unspecified, uncomplicated; F12.90 Cannabis use, unspecified, uncomplicated; Z79.899 Other long term (current) drug therapy; Z90.49 Acquired absence of other specified parts of digestive tract; Z87.01 Personal history of pneumonia (recurrent); Z59.00 Homelessness unspecified
CPT/HCPCS: 96376 ×3; 96375; 96374; 99285; 36415; 94640 ×7; 94760 ×2; 93005; 83880; 80048 ×2; 83735; 84484; 85025 ×2; 85610; 85730; 84145; 71046; G0378 ×4; J1100; J2930 ×3; J7512